=== PATIENT | female | born 1950 | race Caucasian/White ===

== ENCOUNTER 2021-09-07 04:05 | Day surgery (SDC) | payer OTHER, MEDICARE ==
[2021-09-05 12:47] VITALS: BMI 32.2
[2021-09-07] MEDS ORDERED: ONDANSETRON 4 MG/2 ML VIAL ONE (08:47)
[2021-09-07] MEDS ORDERED: PROPOFOL 20 ML ONE ×2 (08:47→09:00)
[2021-09-07] MEDS ORDERED: MIDAZOLAM HCL 2 MG/2 ML SINGLE DOSE VIAL ONE (08:47)
[2021-09-07] MEDS ORDERED: DEXAMETHASONE SOD PHOSPHATE 4 MG/1 ML VIAL ONE (08:47)
[2021-09-07] MEDS ORDERED: LIDOCAINE HCL/PF 2% SDV 5ML VIAL ONE (08:47)
[2021-09-07] MEDS ORDERED: ceFAZolin SODIUM 1 GM VIAL ONE (08:47)
[2021-09-07] MEDS ORDERED: LIDOCAINE HCL 1%, 10 MG/ML (20ML VIAL) ONE (10:09)
[2021-09-07] MEDS ORDERED: ONDANSETRON 4 MG/2 ML VIAL IVPUSH PRN (10:17)
[2021-09-07] MEDS ORDERED: oxyCODONE HCL 5 MG TABLET PO PRN ×2 (10:17)
[2021-09-07] MEDS ORDERED: LACTATED RINGERS SOLUTION 1,000 ML IV SCH (10:30)
[2021-09-07] MEDS ORDERED: ceFAZolin SODIUM 1 GM VIAL IVPB ONE (10:32)
[2021-09-07] MEDS ORDERED: BUPIVACAINE HCL/PF 0.5% (5MG/ML) 10 ML VIAL IJ ONE (10:44)
[2021-09-07] MEDS ORDERED: LIDOCAINE HCL 1%, 10 MG/ML (20ML VIAL) NR ONE (10:44)
[2021-09-07 17:00] VITALS: BP 170/88; PULSE 86; TEMP 98
== END 2021-09-07 13:50 | disposition home or self-care (01) ==
LOC: JASU-SURG 04:05
PROVIDERS: ATTEND Orthopaedic Surgery
PROC: 01N50ZZ Release Median Nerve, Open Approach (ICD-10-PCS; principal; 2021-09-07 09:30)
DX: G56.01 Carpal tunnel syndrome, right upper limb (principal)
CPT/HCPCS: 82962; 94760

== ENCOUNTER 2023-04-09 06:23 | Day surgery (SDC) | payer OTHER, MEDICARE ==
[2023-03-30 13:20] VITALS: BMI 28.7
[2023-04-09] MEDS ORDERED: VANCOMYCIN 1,000 MG VIAL (RESTRICTED TO ID ONLY) ONE (07:44)
[2023-04-09] MEDS ORDERED: MIDAZOLAM HCL 2 MG/2 ML SINGLE DOSE VIAL ONE (07:46)
[2023-04-09] MEDS ORDERED: BUPIVACAINE LIPOSOME/PF (EXPAREL) 266 MG/20 ML VIAL ONE (07:46)
[2023-04-09] MEDS ORDERED: FENTANYL CITRATE/PF 50 MCG/ML VIAL ONE (07:46)
[2023-04-09] MEDS ORDERED: BUPIVACAINE HCL/PF 0.5% (5 MG/ML) 30 ML VIAL IJ ONE (07:46)
[2023-04-09] MEDS ORDERED: BUPIVACAINE HCL/PF 0.5% (5MG/ML) 10 ML VIAL ONE (07:47)
[2023-04-09] MEDS ORDERED: SODIUM CHLORIDE 0.9% P/F 10 ML VIAL IJ ONE (07:47)
[2023-04-09] MEDS ORDERED: SUCCINYLCHOLINE CHLORIDE 200 MG/10 ML SYRINGE ONE (08:29)
[2023-04-09] MEDS ORDERED: HYDROmorphone HCL/PF 1 MG/ML VIAL ONE (08:29)
[2023-04-09] MEDS ORDERED: PROPOFOL 40 ML ONE (08:29)
[2023-04-09] MEDS ORDERED: DEXAMETHASONE SOD PHOSPHATE 4 MG/1 ML VIAL ONE (09:10)
[2023-04-09] MEDS ORDERED: MINERAL OIL/PETROLATUM,WHITE 3.5 GM TUBE ONE (09:10)
[2023-04-09] MEDS ORDERED: ceFAZolin SODIUM 1 GM VIAL ONE (09:10)
[2023-04-09] MEDS ORDERED: LIDOCAINE HCL/PF 2% SDV 5ML VIAL ONE (09:10)
[2023-04-09] MEDS ORDERED: ONDANSETRON 4 MG/2 ML VIAL ONE (09:10)
[2023-04-09] MEDS ORDERED: METOCLOPRAMIDE HCL INJECTION 10 MG/2 ML VIAL ONE (09:10)
[2023-04-09] MEDS ORDERED: ACETAMINOPHEN INJECTION 0 ML IVPB ONE (09:48)
[2023-04-09] MEDS: VANCOMYCIN 1,000 MG VIAL (RESTRICTED TO ID ONLY) IVPB ONE (09:55)
[2023-04-09] MEDS ORDERED: MAG HYDROX/AL HYDROX/SIMETH 30 ML UNIT-DOSE CUP PO PRN (10:52)
[2023-04-09] MEDS ORDERED: ONDANSETRON 4 MG/2 ML VIAL IVPUSH PRN (10:52)
[2023-04-09] MEDS ORDERED: KETOROLAC TROMETHAMINE 15 MG/ML VIAL IVPUSH PRN (10:59)
[2023-04-09] MEDS ORDERED: LACTATED RINGERS SOLUTION 1,000 ML IV SCH (11:00)
[2023-04-09] MEDS: ACETAMINOPHEN 1000 MG/100 ML BAG IVPB PRN (11:19)
[2023-04-09] MEDS: CEFAZOLIN 2 GM in DEXTROSE 5%-WATER - 100 ML IVPB ONE (12:21)
[2023-04-09] MEDS: TRANEXAMIC ACID 1000 MG/10 ML VIAL IVPUSH ONE (12:22)
[2023-04-09] MEDS: metFORMIN HCL 500 MG TABLET (FP) PO SCH (13:50)
[2023-04-09] MEDS: LACTATED RINGERS SOLUTION 1,000 ML IV SCH (13:51)
[2023-04-09] MEDS ORDERED: GABAPENTIN 300 MG CAPSULE PO SCH (14:00)
[2023-04-09] MEDS: oxyCODONE HCL 5 MG TABLET PO PRN (16:09)
[2023-04-09] MEDS: CEFAZOLIN SODIUM 2 GM in DEXTROSE 5%-WATER 100 ML IVPB SCH (16:10)
[2023-04-09] MEDS: SENNOSIDES/DOCUSATE COMBO (SENNA PLUS) TABLET (UD) PO SCH (21:12)
[2023-04-09] MEDS: GABAPENTIN 300 MG CAPSULE PO SCH (21:12)
[2023-04-10 07:48] LABS: HEMATOCRIT 31.8 % (32.4-45.2); HEMOGLOBIN 10.4 G/dL (10.7-15.3); MCH 29.3 pg (25.7-33.7); MCHC 32.6 g/dl (32.0-36.0); MEAN CELL VOLUME 89.8 fl (80-96); MEAN PLT VOLUME 9.4 fl (7.5-11.1); PLATELET COUNT 283.4 10^3/uL (134-434); RBC 3.54 10^6/uL (3.60-5.2); RDW 14.4 % (11.6-15.6); WHITE BLOOD COUNT 10.4 10^3/uL (4.0-10.8)
[2023-04-10 08:09] LABS: CALCIUM 8.6 mg/dl (8.5-10.1); CREATININE 1.3 mg/dl (0.6-1.3); POTASSIUM 4.6 mmol/L (3.5-5.1)
[2023-04-10] MEDS: GABAPENTIN 300 MG CAPSULE PO SCH (09:14)
[2023-04-10] MEDS: PANTOPRAZOLE 40 MG TABLET PO SCH (09:16)
[2023-04-10] MEDS: MULTIVITAMINS (DAILY MVI) TABLET (FP) PO SCH (09:16)
[2023-04-10] MEDS: oxyCODONE HCL 5 MG TABLET PO PRN (09:16)
[2023-04-10] MEDS: ASPIRIN 81 MG CHEWABLE TABLETS PO SCH (09:16)
[2023-04-10] MEDS: ATORVASTATIN CA 40 MG TABLET (FP) PO SCH (21:06)
[2023-04-11 00:37] VITALS: RESP 18
[2023-04-11] MEDS: INSULIN ASPART SLIDING SCALE (NOVOLOG) 1 VIAL SQ SCH (06:21)
[2023-04-11 08:00] LABS: HEMATOCRIT 29.5 % (32.4-45.2); MCH 30.9 pg (25.7-33.7); MEAN CELL VOLUME 90.7 fl (80-96); MEAN PLT VOLUME 9.8 fl (7.5-11.1); PLATELET COUNT 241.1 10^3/uL (134-434); RBC 3.25 10^6/uL (3.60-5.2); RDW 14.2 % (11.6-15.6); WHITE BLOOD COUNT 10.3 10^3/uL (4.0-10.8)
[2023-04-11 09:22] LABS: CALCIUM 8.7 mg/dl (8.5-10.1); POTASSIUM 4.8 mmol/L (3.5-5.1)
[2023-04-11 10:21] VITALS: BP 151/57; PULSE 88; TEMP 98.6
== END 2023-04-11 14:30 ==
LOC: SUATTDRO 06:23 → FASUSAT 06:23 → FM/S 11:56 → FASUSAT 04-11 14:30
PROVIDERS: ATTEND Internal Medicine
PROC: 8E0Y0CZ Robotic Assisted Procedure of Lower Extremity, Open Approach (ICD-10-PCS; 2023-04-09)
PROC: 0SRD0J9 Replacement of Left Knee Joint with Synthetic Substitute, Cemented, Open Approach (ICD-10-PCS; principal; 2023-04-09 09:02)
DX: M17.12 Unilateral primary osteoarthritis, left knee (principal)
CPT/HCPCS: 20985; 27447; C1776; S2900; 0241U-QW; 36415; 73560-TC-LT-FY; 80048; 82962; 85027; 88305-TC; 88311-TC; 94760; 97010-GP; 97116-GP; 97162-GP; J0131